=== PATIENT | female | born 1975 | race American Indian/Alaskan Native ===

== ENCOUNTER 2018-07-02 06:19 | Day surgery (SDC) | payer OTHER ==
[~2018-07-02 06:19] MED LIST: LACTATED RINGERS 1,000 ML IV SCH; NEURONTIN PO NR; TRANSDERM-SCOP TD NR; VERSED IV NR
[2018-07-02] MEDS ORDERED: XYLOCAINE 1% 20 mL ONE ×2 (06:27→06:29)
[2018-07-02] MEDS ORDERED: NACL 0.9% 1000 ML 3,000 ML ONE (06:28)
[2018-07-02] MEDS ORDERED: ADRENALINE P/F ONE (06:28)
[2018-07-02] MEDS ORDERED: XYLOCAINE 1%/ EPI 1:100,000 INFILTRATI ONE ×4 (06:28→09:29)
[2018-07-02] MEDS ORDERED: TRANSDERM-SCOP TD NR (07:00)
[2018-07-02] MEDS ORDERED: VERSED IV NR (07:00)
[2018-07-02] MEDS ORDERED: ANCEF/STERILE WATER 2 GM/20 ML IV NR (07:00)
[2018-07-02] MEDS ORDERED: NEURONTIN PO NR (07:00)
[2018-07-02] MEDS ORDERED: ZEMURON IV ONE ×2 (07:39→12:19)
[2018-07-02] MEDS ORDERED: DECADRON ONE (07:39)
[2018-07-02] MEDS ORDERED: ZOFRAN ONE ×2 (07:39→15:56)
[2018-07-02] MEDS ORDERED: QUELICIN ONE (07:39)
[2018-07-02] MEDS ORDERED: DIPRIVAN 10 MG/ML IV ONE (07:40)
[2018-07-02] MEDS ORDERED: SUBLIMAZE ONE (07:40)
--- NOTE | 2018-07-02 07:54 | Anesthesia Day of Surgery ---
Anesthesia Day of Surgery - Day of Surgery Patient Examined: Yes Patient H&P Reviewed: Yes Patient is NPO: Yes
--- NOTE | 2018-07-02 07:54 | Anesthesia Consultation ---
Anesthesia Consult and Med Hx Date of service: 07/02/18 - Airway Anesthetic Teeth Evaluation: Good ROM Head & Neck: Adequate Mental/Hyoid Distance: Adequate Mallampati Class: Class II Intubation Access Assessment: Probably Good - Pulmonary Exam CTA: Yes - Cardiac Exam Cardiac Exam: RRR - Pre-Operative Health Status ASA Pre-Surgery Classification: ASA1 Proposed Anesthetic Plan: General - Pulmonary Hx Smoking: No Hx Asthma: No Hx Respiratory Symptoms: No (no recent cough or flu-like symptoms) Hx Sleep Apnea: No (SAMUEL PRE SCREEN NEGATIVE) - Cardiovascular System Hx Hypertension: No Hx Heart Attack/AMI: No Hx Percutaneous Transluminal Coronary Angioplasty (PTCA): No - Central Nervous System Hx Seizures: No CVA: No - Gastrointestinal Hx Gastroesophageal Reflux Disease: No - Endocrine Hx Renal Disease: No Hx Liver Disease: No Hx Insulin Dependent Diabetes: No Hx Non-Insulin Dependent Diabetes: No Hx Thyroid Disease: No - Other Systems Hx Obesity: Yes - Additional Comments Anesthesia Medical History Comments: Hx PONV with previous anesthetics.
[2018-07-02] MEDS ORDERED: ANCEF ONE (09:19)
[2018-07-02] MEDS ORDERED: BACITRACIN ONE (09:20)
[2018-07-02] MEDS ORDERED: NACL P/F VIAL (10 ML) 20 ML ONE (09:20)
[2018-07-02] MEDS ORDERED: GENTAMICIN ONE (09:20)
[2018-07-02] MEDS ORDERED: XYLOCAINE 1% 20 mL INFILTRATI ONE (09:30)
[2018-07-02] MEDS ORDERED: ADRENALIN IV ONE (09:32)
[2018-07-02] MEDS ORDERED: NACL 0.9% 1000 ML IR ONE (09:33)
[2018-07-02] MEDS ORDERED: GENTAMICIN IV ONE (09:35)
[2018-07-02] MEDS ORDERED: BACITRACIN IR ONE (09:35)
[2018-07-02] MEDS ORDERED: NACL P/F VIAL (10 ML) INFILTRATI ONE (09:36)
[2018-07-02] MEDS ORDERED: ANCEF IV ONE (09:36)
[2018-07-02] MEDS ORDERED: ROBINUL ONE ×2 (15:35)
[2018-07-02] MEDS ORDERED: BLOXIVERZ ONE (15:35)
[2018-07-02] MEDS ORDERED: TORADOL ONE (15:36)
[2018-07-02] MEDS: DILAUDID IV PRN ×2 (15:45→16:05)
[2018-07-02] MEDS ORDERED: DEMEROL ONE (15:55)
[2018-07-02] MEDS ORDERED: NORCO ONE (15:55)
--- NOTE | 2018-07-02 15:56 | Operative Report ---
Operative Report Operative Report: Plastic Surgery Operative Note Preoperative Diagnosis: Unacceptable cosmetic appearance Postopertive Diagnosis: Same Procedure: Bilateral breast implant placement with mastopexy; Liposuction of bra rolls/axilla with bilateral back lift. Surgeon: Dr. Atiya Herrera Bark [employer] Operator: Kym Patiño CFA Anesthesia: General endotracheal EBL: 200cc Indications: This patient is a 34 year old AAF who presented with complaint of saggy appearing breasts after a breast reduction in 2017. She states that although she is pleased with the size, they are wide and not shapely, flat in the upper pole and she has unsightly scars extending towards her back that cause "pouching" and this shows through her clothing. We decided that implant placement would give her the extra volume she desires, and a lift would narrow and re-center the breasts. As for the back, she was informed that the best solution I could offer was liposuction with a back lift. We discussed the benefits and risks of surgery including implant rupture, infection, capsular contracture, infection, hematoma, seroma, wound dehiscence, scarring and the need for further surgery. Patient understands and accepts these risks and desires to proceed with surgery. Procedure: After marking in preoperative holding the patient was brought into the operating room and placed prone on the OR table. After induction of adequate general endotracheal anesthesia, the patient's back was prepped and draped in the usual sterile surgical fashion. To begin, a No. 11 blade was used to make the cannula entry points of the upper back. 1.5 L of tumescent solution was infiltrated into the tissues of the upper back and axilla. Power assisted liposcution was performed until aspirate was blood-tinged, for a total of 1.9 L removed, 1100 cc of which was pure fat. Back lift markings were then refreshed and 1% lidocaine with epinephrine was injected into the incisions. Starting on the left side of her back, where the deformity of skin folds and scar was greatest, an eliptical island of skin was sharply excised and carried through to fascia using electrocautery. Once removed, we began a 3-layered closure over a 19 Fr drain using 0 PDO Quill and 3-0 Monoderm Quill sutures. The exact same procedure was performed on the right side and we then sealed the back incisions with Dermabond. The patient was then turned to the supine position to begin the breast augmentation/mastopexy portion of the procedure. The patient's chest was prepped and draped in the usual sterile surgical fashion. To begin, after injection of all marked incisions with 1% lidocaine with epinephrine, on the right breast an incision was made in the right breast inframammary fold existing scar to access the pectoralis muscle and fascia. A subpectoral pocket was created. Hemostasis was achieved with electrocautery. The pocket was then irrigated with triple antibiotic solution and a 400 cc [place] moderate plus profile smooth round silicone implant (SN [id number]), using the Valdez funnel was placed without diffculty. The same process was repeated on the left side and the exact same size implant (SN [id number]) was also placed using the funnel. Once satisfied with implant placement, we began the mastopexy portion of the procedure. Using a tailor-tacking approach, excess skin of the breast and nipple was marked and de-epithelialized. The medial and lateral breast pillars of breast tissue were then plicated in the midline using 2-0 Monocryl suture. We then began a 3-layered closure with 3-0 Monoderm Quill and sealed all incisions with Dermabond. Telfa and tegaderm dressings were then placed on the breasts along with ABD pads to the back followed by surgical compression garment. Patient was then awakened from general anesthesia and transferred to PACU in stable condition. There were no complications. All sponge, needle and instrument counts were correct at the end of the case.
[2018-07-02] MEDS ORDERED: ZOFRAN IV PRN (15:58)
[2018-07-02] MEDS ORDERED: ROBAXIN PO PRN (15:58)
[2018-07-02] MEDS ORDERED: NORCO 7.5/325 PO PRN (15:58)
--- NOTE | 2018-07-02 18:49 | Post Anesthesia Evaluation ---
- Post Anesthesia Evaluation Patient Participated: Yes Airway Patent: Yes Stable Respiratory Function: Yes Nausea/Vomiting: No Temp > 96.8F: Yes Pain Manageable: Yes Adequeate Hydration: Yes Anesthesia Complications: No
[2018-07-02 20:01] VITALS: BP 132/68
== END 2018-07-02 06:20 | disposition home or self-care (01) ==
LOC: OR 06:19
PROVIDERS: ATTEND Plastic Surgery
DX: Z41.1 Encounter for cosmetic surgery (principal); E66.9 Obesity, unspecified; Z68.34 Body mass index [BMI] 34.0-34.9, adult; Z79.899 Other long term (current) drug therapy; Z90.710 Acquired absence of both cervix and uterus
CPT/HCPCS: 15777; 15877; 19316; J0171; J0330; J0690; J1100; J1170; J1580; J1885; J2175; J2250; J2405; J2704; J2710; J3010; J7030; J7120